=== PATIENT | male | born 1960 | race Caucasian/White ===

== ENCOUNTER → 2020-05-31 08:32 | Outpatient (BNVA) | payer OTHER, SELFPAY | PROVIDERS: Family Provider Family Medicine; Visit Provider Surgery | DX: Z86.010 Personal history of colon polyps (principal); Z11.52 Encounter for screening for COVID-19 | CPT/HCPCS: 87635 ==

== ENCOUNTER 2020-06-05 07:42 | Day surgery (SDC) | payer OTHER, SELFPAY ==
[2020-06-03 10:06] VITALS: BMI 38.0
--- NOTE | 2020-06-05 07:55 | ANES.PREANE2 ---
Pre-Anesthetic Assessment Pre-Anesthetic Assessment: Height/Weight: Height 1.83 m Weight 127.006 kg Proposed Procedure: Operation Date: 06/05/20 10:15 Proposed Procedures p Colonoscopy 17445 Z86.010(Not Applicable) - Sumit Chicas MD Was Beta Maicol taken within 24 hours: N/A Social: Social History: No alcohol and No tobacco Exam: Pre-Anes Outpt Exam: alert, oriented x 3, clear to auscultation bilaterally and regular rate & rhythm Airway: Submandibular: WNL Cervical ROM: WNL MP: 2 Dentition: False Pulmonary: Pulmonary: Asthma CV/HEM: CV/HEM: HTN Metabolic: Metabolic: Morbid obesity Anesthetic Plan: ASA status: 3 Anesthesia: MAC Risk of > 500 ml blood loss (7ml/kg in children): No PFSH Anesthesia PFSH: Medical History Intervertebral disc disorders with radiculopathy, lumbar region Obesity Spondylolisthesis of lumbar region Social History Smoking and tobacco status: former smoker Alcohol intake: never Lives independently: Yes Household members: spouse Marital status: Current occupational status: disabled History of recent travel: No Data Anesthesia Cardiac Studies: No Data to Display
[2020-06-05 08:06] VITALS: BP 140/96; PULSE 104; RESP 18; TEMP 36.5; O2SAT 97
[2020-06-05] MEDS: sodium chloride 0.9% 1,000 ML 30 ML IV (08:17)
--- NOTE | 2020-06-05 08:18 | P.HP_ITS ---
Same Day Surgery H&P Indication for Procedure/HPI DATE OF PROCEDURE: June 05, 2020 CHIEF COMPLAINT/INDICATIONFOR SURGICAL PROCEDURE: I had polyps PREOP DIAGNOSIS: History of colon polyps PLANNED PROCEDRUE: Operation Date: 06/05/20 10:15 Proposed Procedures p Colonoscopy 30135 Z86.010(Not Applicable) - Sumit Chicas MD This is a pleasant 59 years old gentleman with history of obesity of a BMI of 38 and weighs 280 pounds, gives history of colon polyps removed back in 2017 and denies bleeding per rectum or nonintentional weight loss. And also no history of colon cancer. Patient is referred to me for colonoscopy. Interim history 06/05/2020 Patient comes today for surveillance colonoscopy ROS All systems have been reviewed negative except as per the above or per problem list. Medications/Allergies* Home Medications Medication Instructions Recorded Confirmed Type albuterol sulfate 90 mcg/actuation 90 mcg INHALATION Q6H PRN 08/15/19 06/03/20 History breath activated powder inhaler,sensor benzonatate 100 mg capsule 100 mg PO BID PRN 08/15/19 06/05/20 History cyclobenzaprine 10 mg tablet 10 mg PO TID 08/15/19 06/03/20 History gabapentin 300 mg capsule 300 mg PO TID 08/15/19 06/03/20 History hydrochlorothiazide 25 mg tablet 25 mg PO DAILY 08/15/19 06/03/20 History meloxicam 15 mg tablet 15 mg PO DAILY 08/15/19 06/03/20 History pravastatin 40 mg tablet 40 mg PO DAILY 08/15/19 06/03/20 History cetirizine 10 mg tablet 10 mg PO DAILY 05/02/20 06/03/20 History triamcinolone acetonide 0.1 % 1 applic TOPICAL DAILY 05/02/20 06/03/20 History topical cream Allergies/Adverse Reactions Allergy/AdvReac Type Severity Reaction Status Date / Time acetaminophen Allergy Severe anaphylacti Verified 06/05/20 08:18 c aspirin Allergy Severe Anaphylacti Verified 06/05/20 08:18 c Sulfa (Sulfonamide Allergy Intermediate unknown Verified 06/05/20 08:18 Antibiotics) lisinopril AdvReac Intermediate dry cough Verified 06/05/20 08:18 Current Medications: Generic Name Dose Route Start Last Admin Trade Name Freq PRN Reason Stop Dose Admin Sodium Chloride 1,000 mls @ 30 mls/hr 06/05/20 08:15 06/05/20 08:17 Sodium Chloride 0.9% IV 06/06/20 08:14 30 mls/hr .Q24H MULU Administration Pertinent History/Comorbid Conditions* Medical History (Updated 05/03/20 @ 12:54 by Sumit Chicas MD) Intervertebral disc disorders with radiculopathy, lumbar region Obesity Spondylolisthesis of lumbar region Social History Smoking and tobacco status: former smoker Alcohol intake: never Lives independently: Yes Household members: spouse Marital status: Current occupational status: disabled History of recent travel: No Pertinent Exam Findings alert, oriented x 3, clear to auscultation bilaterally, regular rate & rhythm and procedure specific exam findings (Abdominal examination nontender nondistended soft, obese) Recommendations Surgery/Procedure today (Colonoscopy possible centimeters possible polypectomy) Other Plans: Plan of care; After thorough history and physical examination and reviewing the chart, plan to perform surveillance colonoscopy. I discussed with the patient in details the risks,benefits,alternatives and indications.The risk of aspiration, bleeding, soft tissue injury, perforation of the colon and other potential concomitant complications were explained to the patient in details,also the potential need for Laproscoy/Laparotomy to repair any related complications including but not limited to colectomy and or Closotomy.The patient understood this well and did agree to proceed. Rationale was carefully and clearly discussed with the patient.Appropriate i nformed consent have been reviewed and signed All questions have been answered and all concerns have been addressed to patient's satisfaction. Verbal and written Instructions were given to the patient for colonoscopy prep Coding Level of Care Code Acute Contamination Consultant for Sarah Armstrong
[2020-06-05 09:34] VITALS: BP 116/80; PULSE 93; RESP 18; TEMP 36.4; O2SAT 90
[2020-06-05 09:47] VITALS: BP 122/79; PULSE 97; RESP 18; O2SAT 98
--- NOTE | 2020-06-05 14:50 | ANE.PACU2 ---
Inpatient post-anesthesia follow up: Airway intact: Yes Vital signs: Temperature 97.6 F Pulse Rate 97 Respiratory Rate 18 Blood Pressure 122/79 Pulse Oximetry 98 Oxygen Delivery Me thod Nasal Cannula Oxygen Flow Rate 3 Fraction of Inspir ed Oxygen Hydration adequate: Yes Nausea and vomiting: No Pain level: 1 Mental status: Baseline
== END 2020-06-05 10:10 | disposition home or self-care (01) ==
PROVIDERS: Visit Provider Surgery
PROC: 0DJD8ZZ Inspection of Lower Intestinal Tract, Via Natural or Artificial Opening Endoscopic (ICD-10-PCS; CPT 45378; principal; 2020-06-05 10:15)
DX: Z86.010 Personal history of colon polyps (principal); D12.4 Benign neoplasm of descending colon; E66.9 Obesity, unspecified; Z68.38 Body mass index [BMI] 38.0-38.9, adult; K57.30 Diverticulosis of large intestine without perforation or abscess without bleeding; J45.909 Unspecified asthma, uncomplicated; I10 Essential (primary) hypertension; E66.01 Morbid (severe) obesity due to excess calories; Z87.891 Personal history of nicotine dependence
CPT/HCPCS: 45385; 88305; 96360; 96361; J2704; J7030

== ENCOUNTER 2020-11-21 15:05 | Emergency (ER) | payer OTHER, SELFPAY ==
[2020-11-21 15:49] VITALS: BP 145/90; PULSE 97; RESP 16; TEMP 37.3; O2SAT 94; BMI 41.8
--- NOTE | 2020-11-21 17:01 | PC.NURSE ---
patient has had a lesion on his tongue for 2 months. it popped open today with bleeding; bleeding is controlled at this time.
--- NOTE | 2020-11-21 17:09 | ED_ITS ---
HPI - Skin/Abscess/Foreign Bdy General: Chief complaint: Skin/Abscess/Foreign Body Stated complaint: [facility]ESS [facility] Time Seen by Provider: 11/21/20 17:09 History of Present Illness: HPI narrative: 59-year-old male patient comes in today for concerns of a lesion to the left central tongue. Patient had a lesion fall off and was referred to the ER for further evaluation and treatment. Patient appears well. Patient appears no acute distress. Patient states that the lesion had first showed up 2 to 3 months ago and has grown to the size to the point that it fell off today. Patient is able to speak. Patient appears well. Patient appears in no acute distress. Patient reports that he he was supposed to see a formal wear rental clerk in January, for the lesion. Review of Systems General: Reports: 10 or more systems reviewed and unremarkable except in HPI and below ENMT: Reports: other (Tongue lesion) [facility] ED PFS: Medical History (Updated 11/21/20 @ 17:25 by OVIDIO Aguirre) Diverticulosis History of colon polyps Intervertebral disc disorders with radiculopathy, lumbar region Obesity Spondylolisthesis of lumbar region Social History Smoking and tobacco status: former smoker Alcohol intake: never Lives independently: Yes Household members: spouse Marital status: Current occupational status: disabled History of recent travel: No Physical Exam Const: COMMON NORMALS: no acute distress and patient oriented x3 GENERAL APPEARANCE: cooperative HENMT: COMMON NORMALS: normocephalic and Normal external nose present HEAD & SCALP: normal to inspection and normocephalic NOSE: Normal external nose present MOUTH: other (Small area of bleeding to the left central tongue with blood clot formation) THROAT: posterior oropharynx normal Eye: GENERAL EYE: appearance normal, both eyes and all related structures Neck/C-Spine: COMMON NORMALS: full ROM Chest: COMMONS NORMALS: normal inspection of the chest Resp: COMMON NORMALS: normal respiratory effort EFFORT & INSPECTION: Yes able to speak in complete sentences Cardio: COMMON NORMALS: regular rate and regular rhythm RATE: regular rate RHYTHM: regular rhythm GI: COMMON NORMALS: non-tender Extremity: COMMON NORMALS: normal to inspection Neuro: COMMON NORMALS: patient oriented x3 and moves all extremities Psych: COMMON NORMALS: mental status grossly normal and cooperative Skin: COMMON NORMALS: no rashes or lesions noted GENERAL SKIN EXAM: no rashes or lesions noted Course Vital Signs: Vital signs: Vital Signs Temperature 99.2 F 11/21/20 15:49 Pulse Rate 93 11/21/20 17:29 Respiratory Rate 18 11/21/20 17:29 Blood Pressure 124/82 11/21/20 17:29 Pulse Oximetry 93 11/21/20 17:29 MDM - Skin/Abscess/Foreign Bdy MDM Narrative: Medical decision making narrative: Patient presents with a abnormal lesion to the left central tongue. On exam there is no sign of an abscess. Patient does have a small area of bleeding that is controlled with light pressure. Patient is able to talk without difficulty. Posterior pharynx is normal. Differential diagnosis includes tongue laceration, papilloma of the tongue, carcinoma of the tongue. 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 Bleeding is controlled at this time. Recommend follow-up with ENT for further treatment. We will place a case management report to see if we can expedite the referral process. Patient reported understanding and agreed to plan. Discharge Plan Discharge Patient Disposition: Home Clinical Impression: Papilloma of tongue Condition: Stable Prescriptions: No Action cetirizine 10 mg tablet 10 mg PO DAILY RF: 0 triamcinolone acetonide 0.1 % cream 1 applic topical DAILY RF: 0 gabapentin 300 mg capsule 300 mg PO TID RF: 0 hydrochlorothiazide 25 mg tablet 25 mg PO DAILY RF: 0 meloxicam 15 mg tablet 15 mg PO DAILY RF: 0 Proair Digihaler 90 mcg/actuation aero powdr breath act w/sensor 90 mcg INHALATION Q6H PRN (Reason: Shortness Of Breath) RF: 0 pravastatin 40 mg tablet 40 mg PO DAILY RF: 0 cyclobenzaprine 10 mg tablet 10 mg PO TID RF: 0 benzonatate 100 mg capsule 100 mg PO BID PRN (Reason: Shortness Of Breath) RF: 0 Discharge Orders: Discharge ED (Routine); Ordered 11/21/20 Ordered By: Ian Gallego Referrals: Kendal Van MD [Primary Care Provider] - Discharge Diet: Soft Mechanical Discharge Activity: Increase activity as tolerated Patient Instructions: Mouth Care (ED), Opioid Safety Activity Restrictions/Additional Instructions: Soft diet, avoid acidic and irritating foods. You will need to follow-up with ENT for further treatment of papilloma tongue. This will need excised and remove. Follow-up with primary care as needed. Case management will contact you in regards to appointment. Coding Level of Care Code ED Dry Cleaner Presser for Sarah Armstrong
[2020-11-21 17:29] VITALS: BP 124/82; PULSE 93; RESP 18; O2SAT 93
--- NOTE | 2020-11-22 09:23 | DCPLANNER ---
Addendum entered by Laila Ghosh 11/25/20 10:48: mine manager received [facility] from [facility], stating that [facility] had been [facility] for [facility] for E[facility]. [facility] to [facility] in [place], per patient request. mine manager emailed Rosa Maria Davenport and Rachel at [facility] to disregard referral. Addendum entered by Laila Ghosh 11/22/20 09:47: Patient has [facility] insurance, bottle caser emailed patients information to June, with [facility], so that the authorization process could be started. Original Note: mine manager had message to schedule a follow up appointment for patient with ENT. mine manager emailed patients information to Rosa Maria Davenport and Asha at [facility], general surgery clinic. Patients information will be printed and reviewed. Clinic will call patient with appointment information.
== END 2020-11-21 17:30 | disposition home or self-care (01) ==
PROVIDERS: Emergency Provider Nurse Practitioner Family; PCP Family Medicine
DX: D10.1 Benign neoplasm of tongue (principal); Z87.891 Personal history of nicotine dependence
CPT/HCPCS: 99281

== ENCOUNTER 2022-01-06 13:37 | Outpatient (CLI) | payer OTHER, SELFPAY ==
--- NOTE | 2022-01-06 14:02 | XRR_ITS ---
PROCEDURE INFORMATION: Exam: XR Lumbosacral Spine Exam date and time: 01/06/2022 2:08 PM Age: 61 years old Clinical indication: Low back pain; Prior surgery; Surgery type: L-spine 2 months ago; Additional info: Lumbar radiculopathy TECHNIQUE: Imaging protocol: Radiologic exam of the lumbosacral spine. Views: 2 or 3 views. COMPARISON: CT lumbar spine wo con* [id number] 03/23/2019 8:18 AM FINDINGS: Bones/joints: There is metallic orthopedic hardware with transpedicular screws rods and intervertebral disc prosthesis L2-L5. The orthopedic hardware is intact. No acute fracture. Normal alignment. Soft tissues: Unremarkable. XR/XR lumbar spine 2-3V* [id number] IMPRESSION: 1. No acute findings. 2. Intact orthopedic hardware
== END 2022-01-06 13:38 | disposition home or self-care (01) ==
PROVIDERS: PCP Family Medicine; Visit Provider Nurse Practitioner Family
DX: M54.16 Radiculopathy, lumbar region (principal); M54.50 Low back pain, unspecified
CPT/HCPCS: 72100